=== PATIENT | male | born 1955 | race African-American/Black ===

== ENCOUNTER 2017-10-17 11:29 | Emergency (ER) | payer OTHER, SELFPAY ==
[2017-10-17 11:33] VITALS: BP 121/91; PULSE 103; RESP 22; TEMP 36.9; O2SAT 100; BMI 26.2
--- NOTE | 2017-10-17 12:07 | ED.NAVMDI ---
HPI - Nausea/Vomiting/Diarrhea <Aria Rivera PA-C - Last Filed: 10/17/17 20:57> General Chief complaint: Nausea/Vomiting/Diarrhea Stated complaint: DIARRHEA [id number],DEHYDRATION Time Seen by Provider: 10/17/17 12:06 Source: patient Mode of arrival: ambulatory Limitations: no limitations History of Present Illness HPI Narrative: This 62-year-old male is sent here by the walk-in clinic for dehydration due to 5 day history of watery diarrhea. He states that he thinks he is having 15-20 episodes a day, stools or pure water, he has not noted any blood. He states that he has nausea and has not eaten because he feels like he will vomit. He feels like any fluid he drinks causes diarrhea right away. He has not vomited. He has not had any fever, chills, or sweats. He states that he does not have abdominal pain, just feels a little bit sore all over. He has not had any recent illness or upper respiratory symptoms. He has not had any chest pain or dyspnea. He denies any recent antibiotic use, recent travel, diet change, or well water exposure. He has not had any sick contacts Related Data Home Medications Medication Instructions Recorded Confirmed alfuzosin ER 10 mg tablet,extended 10 mg PO QPM 10/17/17 10/17/17 release 24 hr atorvastatin 1 tab PO DAILY 10/17/17 10/17/17 urea 40 % topical cream 1 applictn TOP BID 10/17/17 10/17/17 Previous Rx's Medication Instructions Recorded ondansetron [Zofran ODT] 4 mg PO TID-QID PRN #10 tab 10/17/17 Allergies Allergy/AdvReac Type Severity Reaction Status Date / Time No Known Drug Allergies Allergy Verified 10/17/17 11:33 Review of Systems <Aria Rivera PA-C - Last Filed: 10/17/17 20:57> Review of Systems All systems reviewed & are unremarkable except as noted in HPI and below PFSH <Aria Rivera PA-C - Last Filed: 10/17/17 20:57> Comment: Approximately 30 pack-years tobacco, current smoker, denies ETOH or street drugs Exam <Aria Rivera PA-C - Last Filed: 10/17/17 20:57> Narrative Exam Narrative: GENERAL APPEARANCE: Patient sitting comfortably, in no distress. HEENT: PERRL, EOMI, no scleral icterus NECK: Supple LUNGS: Clear to auscultation bilaterally. HEART: Rate and rhythm regular, normal S1 and S2, no S3 or S4. ABDOMEN: Soft, nondistended, bowel sounds present x 4 quadrants, no masses palpable, no hepatosplenomegaly. Very minimal generalized tenderness without guarding or rebound EXTREMITIES: No edema, no cyanosis DERMATOLOGIC: No jaundice or exanthem NEUROLOGIC: Alert and oriented with normal speech and coordination Initial Vital Signs Initial Vital Signs: Vital Signs Temperature 98.5 F 10/17/17 11:33 Pulse Rate 103 H 10/17/17 11:33 Respiratory Rate 22 10/17/17 11:33 Blood Pressure 121/91 H 10/17/17 11:33 Pulse Oximetry 100 10/17/17 11:33 <Armen Rodriguez DO - Last Filed: 10/18/17 07:12> Initial Vital Signs Initial Vital Signs: Vital Signs Temperature 98.5 F 10/17/17 11:33 Pulse Rate 103 H 10/17/17 11:33 Respiratory Rate 22 10/17/17 11:33 Blood Pressure 121/91 H 10/17/17 11:33 Pulse Oximetry 100 10/17/17 11:33 Course <Aria Rivera PA-C - Last Filed: 10/17/17 20:57> Additional Information: Patient reports feeling much better after fluids and Zofran. He took in approximately 6-700 mL of oral fluids as well without problems. He was not able to produce a stool sample and did not have any recurrent diarrhea while in the department. Elected to monitor at home and return if worse again. Advised to follow up with PCP for further testing if any recurrent symptoms Orders Ordered: Discontinued Medications Sodium Chloride (Normal Saline 0.9%) 1,000 mls @ 1,000 mls/hr IV BOLUS ONE Stop: 10/17/17 13:27 Last Infusion: 10/17/17 13:39 Dose: 0 mls/hr Admin: 10/17/17 12:28 Dose: 1,000 mls/hr Ondansetron HCl (Zofran) 4 mg IV NOW ONE Stop: 10/17/17 12:18 Last Admin: 10/17/17 12:27 Dose: 4 mg Vital Signs - 8 hr 10/17/17 13:00 10/17/17 13:30 10/17/17 14:24 Pulse Rate 88 92 H 82 Respiratory Rate 17 32 H 16 Blood Pressure 130/81 H Blood Pressure [Left Arm] 139/90 H 128/90 H Pulse Oximetry 98 98 99 <Armen Rodriguez DO - Last Filed: 10/18/17 07:12> Orders Ordered: Discontinued Medications Sodium Chloride (Normal Saline 0.9%) 1,000 mls @ 1,000 mls/hr IV BOLUS ONE Stop: 10/17/17 13:27 Last Infusion: 10/17/17 13:39 Dose: 0 mls/hr Admin: 10/17/17 12:28 Dose: 1,000 mls/hr Ondansetron HCl (Zofran) 4 mg IV NOW ONE Stop: 10/17/17 12:18 Last Admin: 10/17/17 12:27 Dose: 4 mg Vital Signs - 8 hr 10/17/17 13:00 10/17/17 13:30 10/17/17 14:24 Pulse Rate 88 92 H 82 Respiratory Rate 17 32 H 16 Blood Pressure 130/81 H Blood Pressure [Left Arm] 139/90 H 128/90 H Pulse Oximetry 98 98 99 MDM - Nausea/Vomiting/Diarrhea <Aria Rivera PA-C - Last Filed: 10/17/17 20:57> Lab Data Result diagrams: 10/17/17 11:40 10/17/17 11:40 Lab Results 10/17/17 10/17/17 Range/Units 11:40 11:40 WBC 12.4 H (4.5-11.0) X10^3/uL RBC 5.35 (4.5-5.9) X10^6/uL Hgb 16.9 (13.5-17.5) g/dL Hct 49.0 (41-53) % MCV 91.6 (80-100) fL MCH 31.6 (26-34) PG MCHC 34.5 (30-36) % RDW 13.8 (11.6-14.8) % Plt Count 378 (150-400) X10^3/uL Neut % (Auto) 55.2 (50-75) % Lymph % (Auto) 31.7 (25-40) % [place] % (Auto) 9.3 (3-14) % Eos % (Auto) 3.6 (2-4) % Baso % (Auto) 0.2 (0-2) % Neut # (Auto) 6800 H (6593-4094) /uL Sodium 139 (137-145) mmol/L Potassium 4.0 (3.4-5.1) mmol/L Chloride 109 H (98-107) mmol/L Carbon Dioxide 14 L (22-32) mmol/L BUN 21 H (9-20) mg/dL Creatinine 1.20 (0.66-1.25) mg/dL Estimated GFR > 60.0 (>60) mL/min BUN/Creatinine Ratio 17.5 (6-22) Glucose 136 H (80-110) mg/dL Calcium 9.7 (8.4-10.2) mg/dL Total Bilirubin 0.7 (0.2-1.3) mg/dL AST 16 L (17-59) IU/L ALT 16 L (21-72) IU/L Alkaline Phosphatase 127 H (38-126) U/L Total Protein 8.5 H (6.3-8.2) g/dL Albumin 4.9 (3.5-5.0) g/dL Globulin 3.6 (1.7-4.1) g/dL Albumin/Globulin Ratio 1.4 (1.0-2.8) Lipase 149 (23-300) U/L <Armen Rodriguez, DO - Last Filed: 10/18/17 07:12> Lab Data Lab Results 10/17/17 10/17/17 Range/Units 11:40 11:40 WBC 12.4 H (4.5-11.0) X10^3/uL RBC 5.35 (4.5-5.9) X10^6/uL Hgb 16.9 (13.5-17.5) g/dL Hct 49.0 (41-53) % MCV 91.6 (80-100) fL MCH 31.6 (26-34) PG MCHC 34.5 (30-36) % RDW 13.8 (11.6-14.8) % Plt Count 378 (150-400) X10^3/uL Neut % (Auto) 55.2 (50-75) % Lymph % (Auto) 31.7 (25-40) % [place] % (Auto) 9.3 (3-14) % Eos % (Auto) 3.6 (2-4) % Baso % (Auto) 0.2 (0-2) % Neut # (Auto) 6800 H (0253-2190) /uL Sodium 139 (137-145) mmol/L Potassium 4.0 (3.4-5.1) mmol/L Chloride 109 H (98-107) mmol/L Carbon Dioxide 14 L (22-32) mmol/L BUN 21 H (9-20) mg/dL Creatinine 1.20 (0.66-1.25) mg/dL Estimated GFR > 60.0 (>60) mL/min BUN/Creatinine Ratio 17.5 (6-22) Glucose 136 H (80-110) mg/dL Calcium 9.7 (8.4-10.2) mg/dL Total Bilirubin 0.7 (0.2-1.3) mg/dL AST 16 L (17-59) IU/L ALT 16 L (21-72) IU/L Alkaline Phosphatase 127 H (38-126) U/L Total Protein 8.5 H (6.3-8.2) g/dL Albumin 4.9 (3.5-5.0) g/dL Globulin 3.6 (1.7-4.1) g/dL Albumin/Globulin Ratio 1.4 (1.0-2.8) Lipase 149 (23-300) U/L Discharge Plan Departure Patient Disposition: Home Clinical Impression: Dehydration, Gastroenteritis Discharge Date/Time: 10/17/17 14:27 Interventions: ED Discharge Assessment Last Done: 10/17/17 14:24 Instructions: [place] Diet, DI for Viral Gastroenteritis -- Adult Activity Restrictions/Additional Instructions: Please drink clear fluids today. You can use [id number] Imodium if needed for loose stools. You can use the prescription antinausea medicine for the next couple of days if needed. You should return as we talked about if you have any acutely worsening symptoms again, or new symptoms such as pain or fever. Otherwise, you can start with small amounts of bland food every few hours. Try clear broth, bananas, applesauce, white toast, white rice without oil, butter etc. If you can tolerate these, you can advance to thinks like skinless baked potato, skinless baked chicken, plain pasta and other low residue foods. You can gradually return to your normal diet. Prescriptions: New ondansetron [Zofran ODT] 4 mg tablet,disintegrating 4 mg PO TID-QID PRN (Reason: nausea and vomiting) Qty: 10 RF: 0 No Action urea 40 % cream 1 applictn TOP BID RF: 0 alfuzosin [Uroxatral] 10 mg tablet extended release 24 hr 10 mg PO QPM RF: 0 atorvastatin 1 tab PO DAILY RF: 0 Referrals: Justin Zuluaga [Other] <Armen Rodriguez, - Last Filed: 10/18/17 07:12> Cosign ED Attending Skylaature Attestation: I was available for consultation during this patient's emergency department encounter
[2017-10-17] MEDS: ONDANSETRON 4 MG/2 ML INJ IV (12:27)
[2017-10-17] MEDS: SODIUM CHLORIDE 0.9% 1,000 ML 1000 ML IV (12:28)
[2017-10-17 12:29] LABS: Add Manual Diff / Slide Review NO; Basophils Percent Auto 0.2 % (0-2); Eosinophils Percent Auto 3.6 % (2-4); Hemoglobin 16.9 g/dL (13.5-17.5); Lymphocytes Percent Auto 31.7 % (25-40); Mean Corpuscular HGB Conc 34.5 % (30-36); Mean Corpuscular Hemoglobin 31.6 PG (26-34); Mean Corpuscular Volume 91.6 fL (80-100); Monocytes Percent Auto 9.3 % (3-14); Neutrophils Absolute Auto 6800 /uL (3000-5900); Neutrophils Percent Auto 55.2 % (50-75); Platelet Count 378 X10^3/uL (150-400); Red Blood Cell Count 5.35 X10^6/uL (4.5-5.9); Red Cell Distribution Width 13.8 % (11.6-14.8); White Blood Cell Count 12.4 X10^3/uL (4.5-11.0)
[2017-10-17 12:35] VITALS: BP 129/103; PULSE 94; RESP 18; O2SAT 98
[2017-10-17 12:36] LABS: Alanine Aminotransferase 16 IU/L (21-72); Albumin 4.9 g/dL (3.5-5.0); Albumin Globulin Ratio 1.4 (1.0-2.8); Alkaline Phosphatase 127 U/L (38-126); Aspartate Aminotransferase 16 IU/L (17-59); BUN Creatinine Ratio 17.5 (6-22); Bilirubin Total 0.7 mg/dL (0.2-1.3); Blood Urea Nitrogen 21 mg/dL (9-20); Calcium 9.7 mg/dL (8.4-10.2); Carbon Dioxide 14 mmol/L (22-32); Chloride 109 mmol/L (98-107); Estimated Glomerular Filt Rate > 60.0 mL/min (>60); Globulin 3.6 g/dL (1.7-4.1); Glucose 136 mg/dL (80-110); HEMOLYSIS < 15 (0-50); Lipase 149 U/L (23-300); Sodium 139 mmol/L (137-145); Total Protein 8.5 g/dL (6.3-8.2)
[2017-10-17 13:00] VITALS: BP 139/90; PULSE 88; RESP 17; O2SAT 98
[2017-10-17 13:30] VITALS: BP 128/90; PULSE 92; RESP 32; O2SAT 98
[2017-10-17 14:24] VITALS: BP 130/81; PULSE 82; RESP 16; O2SAT 99
== END 2017-10-17 14:27 | disposition home or self-care (01) ==
PROVIDERS: Emergency Provider Internal Medicine
DX: K52.9 Noninfective gastroenteritis and colitis, unspecified (principal); E86.0 Dehydration
CPT/HCPCS: 36591; 80053; 83690; 85025; 96361; 96374; 99283; 99284; J2405